=== PATIENT | female | born 1970 | race Caucasian/White ===

== ENCOUNTER 2018-11-20 10:16 | Emergency (ER) | payer BC, MEDICAID ==
[~2018-11-20] VITALS: Ht 167.6 cm; Wt 83.0 kg
--- NOTE | 2018-11-20 10:44 | NUR ---
VENANCIOCASEY WAS SEEN BY . SHE IS AWAKE AND ALERT IN NO DISTRESS. DC, RX AND FOLLOW UP INSTRUCTIONS GIVEN AND EXPLAINED TO PATIENT AND RELATIVE WHO STATE THEY UNDERSTAND ALL INSTRUCTIONS
== END 2018-11-20 10:49 | disposition home or self-care (01) ==
LOC: ER 10:16
DX: J40 Bronchitis, not specified as acute or chronic (principal); J06.9 Acute upper respiratory infection, unspecified; B97.89 Other viral agents as the cause of diseases classified elsewhere; E11.9 Type 2 diabetes mellitus without complications; E03.9 Hypothyroidism, unspecified
CPT/HCPCS: A4663